=== PATIENT | male | born 1970 | race Caucasian/White ===

== ENCOUNTER 2017-10-02 18:50 | Emergency (ER) | payer OTHER ==
[~2017-10-02] VITALS: Ht 177.8 cm; Wt 85.3 kg
[2017-10-02] MEDS ORDERED: PLAVIX75 MG (19:00)
[2017-10-02] MEDS ORDERED: COUMADIN1 MG (19:00)
[2017-10-03] MEDS ORDERED: PROTONIX40 MG PO (06:26)
[2017-10-03] MEDS ORDERED: ANUSOL-HC25 MG RECTAL (06:26)
== END 2017-10-03 07:09 | disposition home or self-care (01) ==
LOC: ER 18:50
DX: K62.5 Hemorrhage of anus and rectum (principal)

== ENCOUNTER 2017-12-12 12:26 | Emergency (ER) | payer OTHER ==
[~2017-12-12] VITALS: Ht 177.8 cm; Wt 86.2 kg
[~2017-12-12 12:26] MED LIST: ANUSOL-HC25 MG RECTAL; COUMADIN1 MG; PLAVIX75 MG; PROTONIX40 MG PO
[2017-12-12] MEDS ORDERED: METOPROLOL TART50 MG PO (15:34)
[2017-12-12] MEDS ORDERED: SIMVASTATIN20 MG PO (15:35)
[2017-12-12] MEDS ORDERED: CLONAZEPAM0.5 MG PO (15:35)
[2017-12-12] MEDS ORDERED: TRIGLIDE160 MG PO (15:35)
[2017-12-12] MEDS ORDERED: CITALOPRAM HBR10 MG PO (15:36)
[2017-12-12] MEDS ORDERED: MEDROLPACK PO (15:51)
[2017-12-12] MEDS ORDERED: COLCHICINE0.6 MG PO (15:51)
== END 2017-12-12 16:22 | disposition home or self-care (01) ==
LOC: ER 12:26
DX: M10.9 Gout, unspecified (principal)

== ENCOUNTER 2019-12-10 09:57 | Emergency (ER) | payer OTHER ==
[~2019-12-10] VITALS: Ht 177.8 cm; Wt 86.2 kg
[~2019-12-10 09:57] MED LIST changes: +CITALOPRAM HBR10 MG PO; +CLONAZEPAM0.5 MG PO; +COLCHICINE0.6 MG PO; +MEDROLPACK PO; +METOPROLOL TART50 MG PO; +SIMVASTATIN20 MG PO; +TRIGLIDE160 MG PO
[2019-12-10] MEDS ORDERED: LIPITOR40 MG (10:12)
[2019-12-10] MEDS ORDERED: OMEGA-31000 MG (10:13)
[2019-12-10] MEDS ORDERED: CLONAZEPAM2 MG (10:14)
[2019-12-10] MEDS ORDERED: ZYLOPRIM100 M1 (10:16)
[2019-12-10] MEDS ORDERED: PEPCID COMPLET1 EACH PO (15:34)
== END 2019-12-10 18:07 | disposition home or self-care (01) ==
LOC: ER 09:57 → CPU-OBS 10:11 → ER 10:11
DX: R53.1 Weakness (principal); R10.13 Epigastric pain; E86.0 Dehydration; I10 Essential (primary) hypertension

== ENCOUNTER 2021-07-29 12:11 | Inpatient (IN) | payer OTHER ==
[~2021-07-29] VITALS: Ht 177.8 cm; Wt 87.1 kg
[~2021-07-29 12:11] MED LIST changes: +CLONAZEPAM2 MG; +LIPITOR40 MG; +OMEGA-31000 MG; +PEPCID COMPLET1 EACH PO; +ZYLOPRIM100 M1
== END 2021-08-06 08:57 | DRG 177 ==
LOC: ER 12:11 → SEC-K 23:38 → MEDJ 23:38 → SEC-K 07-30 00:12 → MEDJ 07-31 00:30
PROVIDERS: ADMIT Internal Medicine; ATTEND Internal Medicine
PROC: B030ZZZ Magnetic Resonance Imaging (MRI) of Brain (ICD-10-PCS; 2021-07-29)
PROC: 8E0ZXY6 Isolation (ICD-10-PCS; 2021-07-29)
PROC: XW033E5 Introduction of Remdesivir Anti-infective into Peripheral Vein, Percutaneous Approach, New Technology Group 5 (ICD-10-PCS; principal; 2021-07-30)
PROC: BW24YZZ Computerized Tomography (CT Scan) of Chest and Abdomen using Other Contrast (ICD-10-PCS; 2021-07-30)
PROC: 4A12X4Z Monitoring of Cardiac Electrical Activity, External Approach (ICD-10-PCS; 2021-07-31)
DX: U07.1 COVID-19 (principal); J12.82 Pneumonia due to coronavirus disease 2019; R53.1 Weakness; R09.02 Hypoxemia; D46.Z Other myelodysplastic syndromes; R29.818 Other symptoms and signs involving the nervous system; I25.10 Atherosclerotic heart disease of native coronary artery without angina pectoris; I10 Essential (primary) hypertension; E86.0 Dehydration; E87.8 Other disorders of electrolyte and fluid balance, not elsewhere classified; Z95.1 Presence of aortocoronary bypass graft
CPT/HCPCS: 70551